=== PATIENT | female | born 1965 ===

== ENCOUNTER 2018-09-23 10:48 | Emergency (ER) | payer OTHER ==
[~2018-09-23] VITALS: Ht 167.6 cm; Wt 108.9 kg
[2018-09-23] MEDS ORDERED: ALDACTONE100 MG (10:54)
[2018-09-23] MEDS ORDERED: LASIX40 MG (10:54)
== END 2018-09-23 12:57 | disposition home or self-care (01) ==
LOC: ER 10:48
DX: S30.0XXA Contusion of lower back and pelvis, initial encounter (principal); M54.5 Low back pain; W18.39XA Other fall on same level, initial encounter; Y93.89 Activity, other specified; Y92.091 Bathroom in other non-institutional residence as the place of occurrence of the external cause; Y99.8 Other external cause status

== ENCOUNTER 2019-07-17 09:08 | Outpatient (CLI) | payer OTHER ==
[~2019-07-17 09:08] MED LIST: ALDACTONE100 MG; LASIX40 MG
== END 2019-07-17 09:18 | disposition home or self-care (01) ==
LOC: TOM 09:08
PROVIDERS: ATTEND Internal Medicine Hematology & Oncology
DX: K75.89 Other specified inflammatory liver diseases (principal)

== ENCOUNTER 2019-11-02 08:39 | Outpatient (CLI) | payer OTHER | END 2019-11-02 16:59 | disposition home or self-care (01) | LOC: RAD 08:39 | PROVIDERS: ATTEND Orthopaedic Surgery | DX: S20.212D Contusion of left front wall of thorax, subsequent encounter (principal); S32.010D Wedge compression fracture of first lumbar vertebra, subsequent encounter for fracture with routine healing ==

== ENCOUNTER 2020-12-13 13:11 | Emergency (ER) | payer OTHER ==
[~2020-12-13] VITALS: Ht 167.6 cm; Wt 102.5 kg
== END 2020-12-13 19:27 | disposition home or self-care (01) ==
LOC: ER 13:11
DX: K75.89 Other specified inflammatory liver diseases (principal)